=== PATIENT | male | born 1955 | race African-American/Black ===

== ENCOUNTER 2017-01-25 23:21 | Observation (INO) | payer MEDICAID ==
[~2017-01-25] VITALS: Ht 167.6 cm; Wt 77.7 kg
[~2017-01-25 23:21] MED LIST: ALLO100T30 PO; AMLO10TA4 PO; ENAL20TA PO; ENAL20TA68 PO; ESCI20TA PO; FLUO20CA19 PO; MIRT15TA PO; OLAN15TA9 PO; OLAN20TA3 PO; RISP2TAB35 PO; TRIA1TAB3 PO; ZOLP10TA PO
[2017-01-26] MEDS ORDERED: ZIPRASIDONE 20 MG INJ IM ONE (00:02)
[2017-01-26] MEDS ORDERED: HALOPERIDOL 5 MG/ML ONE (00:04)
[2017-01-26] MEDS ORDERED: DIPHENHYDRAMINE 50 MG/ML, 1ML ONE (00:04)
[2017-01-26] MEDS ORDERED: LORazepam 2 MG/ML, 1ML ONE (00:05)
[2017-01-26] MEDS ORDERED: DIPHENHYDRAMINE 50 MG/ML, 1ML IM ONE (00:30)
[2017-01-26] MEDS ORDERED: HALOPERIDOL 5 MG/ML IM ONE (00:30)
[2017-01-26] MEDS ORDERED: LORazepam 2 MG/ML, 1ML IM ONE (00:30)
[2017-01-26 01:30] LABS: ASPARTATE AMINO TRANSFERASE 28 U/L (15-37); BLOOD UREA NITROGEN 15 mg/dL (7-18)
[2017-01-26 01:35] LABS: ACETAMINOPHEN < 2 mcg/mL (10-30)
[2017-01-26 08:33] LABS: DAU SCREEN DISCLAIMER
[2017-01-26] MEDS ORDERED: DOCUSATE 100 MG CAPSULE PO PRN (16:30)
[2017-01-26] MEDS ORDERED: HALOPERIDOL 5 MG TABLET PO PRN (16:30)
[2017-01-26] MEDS ORDERED: LORazepam 1MG TABLET PO PRN (16:30)
[2017-01-26] MEDS ORDERED: BISACODYL 10 MG SUPP PR PRN (16:30)
[2017-01-26] MEDS ORDERED: ONDANSETRON ODT 4 MG PO PRN (16:30)
[2017-01-26] MEDS ORDERED: POLYETHYLENE GLYCOL 17 GM PACKET PO PRN (16:30)
[2017-01-26 17:49] VITALS: BP 157/97
[2017-01-26] MEDS: NICOTINE 21 MG/24 HR PATCH.TD24 TD SCH (19:27)
[2017-01-26 19:35] VITALS: BP 161/107
[2017-01-27 07:37] VITALS: BP_SYST 191; BP_SYST 199; BP_DIAS 122; BP_DIAS 129
[2017-01-27] MEDS: ALLOPURINOL 100 MG TABLET PO SCH (08:39)
[2017-01-27] MEDS: TRIAMTERENE-HCTZ 37.5/25 MG TABLET PO SCH (08:40)
[2017-01-27] MEDS: ENALAPRIL 20MG TABLET PO SCH (08:40)
[2017-01-27] MEDS: AMLODIPINE 5 MG TABLET PO SCH (08:40)
[2017-01-27] MEDS: ACETAMINOPHEN 325 MG TABLET PO PRN (09:21)
[2017-01-27 11:47] VITALS: BP 147/84
[2017-01-27] MEDS: NICOTINE 21 MG/24 HR PATCH.TD24 TD SCH (17:00)
[2017-01-27 19:39] VITALS: BP 158/103
[2017-01-28 07:44] VITALS: BP 169/119
[2017-01-28 07:45] VITALS: BP 168/115
[2017-01-28] MEDS: TRIAMTERENE-HCTZ 37.5/25 MG TABLET PO SCH (07:49)
[2017-01-28] MEDS: ALLOPURINOL 100 MG TABLET PO SCH (07:49)
[2017-01-28] MEDS: ENALAPRIL 20MG TABLET PO SCH (07:50)
[2017-01-28] MEDS: AMLODIPINE 5 MG TABLET PO SCH (07:50)
[2017-01-28 11:30] VITALS: BP 165/107
[2017-01-28] MEDS: NICOTINE 21 MG/24 HR PATCH.TD24 TD SCH (15:46)
[2017-01-28 19:25] VITALS: BP 175/117
[2017-01-28] MEDS: ACETAMINOPHEN 325 MG TABLET PO PRN (19:25)
[2017-01-28 20:27] VITALS: BP 157/115
[2017-01-28 21:45] VITALS: BP 139/98
[2017-01-29] MEDS: ALLOPURINOL 100 MG TABLET PO SCH (07:21)
[2017-01-29] MEDS: TRIAMTERENE-HCTZ 37.5/25 MG TABLET PO SCH (07:21)
[2017-01-29] MEDS: AMLODIPINE 5 MG TABLET PO SCH ×3 (07:21→09:32)
[2017-01-29 08:11] VITALS: BP 155/96
[2017-01-29] MEDS: ENALAPRIL 20MG TABLET PO SCH (09:00)
[2017-01-29] MEDS: NICOTINE 21 MG/24 HR PATCH.TD24 TD SCH (15:29)
[2017-01-29] MEDS ORDERED: TRIA1TAB3 PO (16:33)
[2017-01-29] MEDS ORDERED: AMLO5TAB2 PO (16:33)
[2017-01-29] MEDS ORDERED: ENAL20TA PO (16:33)
[2017-01-29] MEDS ORDERED: DOCU-30 PO (16:33)
[2017-01-29] MEDS ORDERED: ALLO100T30 PO (16:33)
== END 2017-01-29 16:39 | disposition home or self-care (01) ==
LOC: ED 23:59 → EDIP 01-26 15:22 → 3E 01-26 17:37
PROVIDERS: ADMIT Family Medicine; ATTEND Family Medicine
DX: R45.850 Homicidal ideations (principal); E44.0 Moderate protein-calorie malnutrition; I11.9 Hypertensive heart disease without heart failure; F41.9 Anxiety disorder, unspecified; R45.851 Suicidal ideations; M10.9 Gout, unspecified; G89.29 Other chronic pain; F17.200 Nicotine dependence, unspecified, uncomplicated; F12.90 Cannabis use, unspecified, uncomplicated; M54.9 Dorsalgia, unspecified; Z98.890 Other specified postprocedural states; Z80.9 Family history of malignant neoplasm, unspecified
CPT/HCPCS: 36415; 80053; 80307; 80329; 85025; 96372; 99285; G0378; J1200; J1630; J2060; G0480

== ENCOUNTER 2017-02-24 23:14 | Emergency (ER) | payer MEDICAID ==
[~2017-02-24] VITALS: Ht 170.2 cm; Wt 75.0 kg
[~2017-02-24 23:14] MED LIST changes: +AMLO5TAB2 PO; +DOCU-30 PO
[2017-02-24 23:23] VITALS: BP 169/106
[2017-02-25 00:28] LABS: ASPARTATE AMINO TRANSFERASE 24 U/L (15-37); BLOOD UREA NITROGEN 25 mg/dL (7-18)
[2017-02-25 00:32] LABS: ACETAMINOPHEN < 2 mcg/mL (10-30)
[2017-02-25 01:18] LABS: DAU SCREEN DISCLAIMER
== END 2017-02-25 04:02 | disposition home or self-care (01) ==
LOC: ED 23:59
DX: F15.129 Other stimulant abuse with intoxication, unspecified (principal); R44.3 Hallucinations, unspecified; F20.9 Schizophrenia, unspecified; R44.0 Auditory hallucinations; F20.0 Paranoid schizophrenia; F41.1 Generalized anxiety disorder; F29 Unspecified psychosis not due to a substance or known physiological condition; M10.9 Gout, unspecified; F32.9 Major depressive disorder, single episode, unspecified; I10 Essential (primary) hypertension
CPT/HCPCS: 36415; 80053; 80307; 80329; 81003; 85025; 99284; G0480

== ENCOUNTER 2017-02-26 13:00 | Emergency (ER) | payer MEDICAID ==
[~2017-02-26] VITALS: Ht 170.2 cm; Wt 80.0 kg
[2017-02-26 13:47] LABS: ASPARTATE AMINO TRANSFERASE 26 U/L (15-37); BLOOD UREA NITROGEN 20 mg/dL (7-18)
[2017-02-26 14:58] VITALS: BP 176/90
== END 2017-02-26 15:01 | disposition home or self-care (01) ==
LOC: ED 14:49
DX: R42 Dizziness and giddiness (principal); M10.9 Gout, unspecified; I10 Essential (primary) hypertension; F17.210 Nicotine dependence, cigarettes, uncomplicated; F15.10 Other stimulant abuse, uncomplicated; F12.10 Cannabis abuse, uncomplicated
CPT/HCPCS: 36415; 80053; 85025; 93005

== ENCOUNTER 2017-10-11 01:45 | Emergency (ER) | payer MEDICAID ==
[~2017-10-11] VITALS: Ht 170.2 cm; Wt 70.0 kg
[~2017-10-11 01:45] MED LIST changes: +DOCU-131 PO; -DOCU-30 PO
[2017-10-11 01:47] VITALS: BP 147/86
[2017-10-11 02:46] LABS: BASOPHILS # (AUTO) 0.06 x10^3/uL (0-0.1); BASOPHILS % (AUTO) 1 % (0-1); EOSINOPHILS # (AUTO) 0.18 x10^3/uL (0-0.4); EOSINOPHILS % (AUTO) 2 % (1-7); LYMPHOCYTES # (AUTO) 1.27 x10^3/uL (1-3.4); LYMPHOCYTES % (AUTO) 11 % (22-44); MD NO; MEAN CORPUSCULAR HEMOGLOBIN 31.1 pg (27.5-34.5); MEAN CORPUSCULAR HGB CONC 32.5 g/dL (33.2-36.2); MEAN CORPUSCULAR VOLUME 95.5 fL (81-97); MEAN PLATELET VOLUME 8.8 fL (7.4-10.4); MONOCYTES # (AUTO) 1.07 x10^3/uL (0.2-0.8); MONOCYTES % (AUTO) 9 % (2-9); NEUTROPHILS # (AUTO) 9.04 x10^3/uL (1.8-6.8); NEUTROPHILS % (AUTO) 78 % (42-75); PLATELET COUNT 580 x10^3/uL (130-400); RED BLOOD COUNT 3.09 x10^6/uL (4.38-5.82); RED CELL DISTRIBUTION WIDTH 14.7 % (9.4-14.8)
[2017-10-11 02:55] LABS: ALBUMIN 2.4 g/dL (3.4-5.0); ANION GAP 10 mmol/L (5-15); CALCIUM 8.6 mg/dL (8.5-10.1); CHLORIDE 102 mmol/L (98-107); CREATININE 1.13 mg/dL (0.7-1.3)
[2017-10-11 02:59] LABS: TROPONIN I 0.015 ng/mL (0.000-0.045)
== END 2017-10-11 04:24 | disposition home or self-care (01) ==
LOC: ED 03:17
DX: J02.8 Acute pharyngitis due to other specified organisms (principal); D64.89 Other specified anemias; I10 Essential (primary) hypertension; F20.0 Paranoid schizophrenia; Z59.0 Homelessness
CPT/HCPCS: 36415; 71045; 80048; 82040; 84484; 85025; 93005; 99285

== ENCOUNTER 2017-10-12 22:39 | Emergency (ER) | payer MEDICAID ==
[~2017-10-12] VITALS: Ht 172.7 cm; Wt 77.2 kg
[2017-10-12 22:44] VITALS: BP 155/83
[2017-10-12 23:21] LABS: ALANINE AMINOTRANSFERASE 58 U/L (12-78); ALBUMIN 2.3 g/dL (3.4-5.0); ANION GAP 9 mmol/L (5-15); CHLORIDE 109 mmol/L (98-107); CREATININE 1.18 mg/dL (0.7-1.3)
[2017-10-12 23:28] LABS: ALKALINE PHOSPHATASE 76 U/L (45-117); BILIRUBIN,TOTAL 0.3 mg/dL (0.2-1.0); TOTAL PROTEIN 7.1 g/dL (6.4-8.2)
[2017-10-12 23:29] LABS: ACETAMINOPHEN < 2 mcg/mL (10-30); SALICYLATE LEVEL < 1.7 mg/dL (2.8-20.0)
[2017-10-12 23:37] LABS: MEAN CORPUSCULAR HEMOGLOBIN 31.2 pg (27.5-34.5); MEAN CORPUSCULAR HGB CONC 32.2 g/dL (33.2-36.2); MEAN CORPUSCULAR VOLUME 96.9 fL (81-97); MEAN PLATELET VOLUME 8.9 fL (7.4-10.4); PLATELET COUNT 528 x10^3/uL (130-400); RED BLOOD COUNT 2.81 x10^6/uL (4.38-5.82); RED CELL DISTRIBUTION WIDTH 14.9 % (9.4-14.8)
[2017-10-12 23:49] LABS: AMPHETAMINE SCREEN, URINE Negative (Negative); BARBITURATE SCREEN, URINE Positive (Negative); BENZODIAZEPINE SCREEN, URINE Positive (Negative); CANNABINOID SCREEN, URINE Negative (Negative); COCAINE SCREEN, URINE Negative (Negative); METHADONE SCREEN, URINE Negative (Negative); OPIATE SCREEN, URINE Negative (Negative)
[2017-10-12 23:58] LABS: BASOPHILS # (AUTO) 0.02 x10^3/uL (0-0.1); BASOPHILS % (AUTO) 0 % (0-1); EOSINOPHILS # (AUTO) 0.26 x10^3/uL (0-0.4); EOSINOPHILS % (AUTO) 3 % (1-7); LYMPHOCYTES # (AUTO) 1.78 x10^3/uL (1-3.4); LYMPHOCYTES % (AUTO) 19 % (22-44); MD SCAN; MONOCYTES # (AUTO) 0.79 x10^3/uL (0.2-0.8); MONOCYTES % (AUTO) 9 % (2-9); NEUTROPHILS # (AUTO) 6.43 x10^3/uL (1.8-6.8); NEUTROPHILS % (AUTO) 69 % (42-75)
== END 2017-10-13 01:57 | disposition home or self-care (01) ==
LOC: ED 23:51
DX: F32.0 Major depressive disorder, single episode, mild (principal); I10 Essential (primary) hypertension; F20.9 Schizophrenia, unspecified; F17.200 Nicotine dependence, unspecified, uncomplicated; Z59.0 Homelessness; Z79.899 Other long term (current) drug therapy
CPT/HCPCS: 36415; 80053; 80307; 80329; 85025; 99284; G0479; G0480

== ENCOUNTER 2017-10-15 22:18 | Emergency (ER) | payer MEDICAID ==
[~2017-10-15] VITALS: Ht 172.7 cm; Wt 78.0 kg
[2017-10-15 22:19] VITALS: BP 172/89
[2017-10-16] MEDS ORDERED: KETOROLAC 30 MG/1 ML ONE (00:15)
[2017-10-16] MEDS ORDERED: ACETAMINOPHEN 500 MG TABLET ONE (00:15)
[2017-10-16] MEDS ORDERED: ACETAMINOPHEN 500 MG TABLET PO ONE (00:30)
[2017-10-16] MEDS ORDERED: KETOROLAC 30 MG/1 ML IM ONE (00:30)
== END 2017-10-16 00:56 | disposition home or self-care (01) ==
LOC: ED 23:59
DX: M25.561 Pain in right knee (principal); M25.571 Pain in right ankle and joints of right foot; M79.671 Pain in right foot; I10 Essential (primary) hypertension
CPT/HCPCS: 96372; 99283; J1885

== ENCOUNTER 2017-10-19 12:25 | Emergency (ER) | payer MEDICAID ==
[~2017-10-19] VITALS: Ht 185.4 cm; Wt 80.0 kg
[2017-10-19] MEDS ORDERED: COLCHICINE 0.6 MG TABLET PO ONE ×2 (13:00→14:00)
[2017-10-19] MEDS ORDERED: CHLORDIAZEPOXIDE 10 MG CAPSULE PO PRN (13:00)
[2017-10-19] MEDS ORDERED: KETOROLAC 30 MG/1 ML IM ONE (13:00)
[2017-10-19 13:06] LABS: BASOPHILS # (AUTO) 0.05 x10^3/uL (0-0.1); BASOPHILS % (AUTO) 0 % (0-1); EOSINOPHILS # (AUTO) 0.03 x10^3/uL (0-0.4); EOSINOPHILS % (AUTO) 0 % (1-7); LYMPHOCYTES # (AUTO) 1.18 x10^3/uL (1-3.4); LYMPHOCYTES % (AUTO) 8 % (22-44); MD NO; MEAN CORPUSCULAR HEMOGLOBIN 31.3 pg (27.5-34.5); MEAN CORPUSCULAR HGB CONC 32.7 g/dL (33.2-36.2); MEAN CORPUSCULAR VOLUME 95.6 fL (81-97); MONOCYTES # (AUTO) 1.19 x10^3/uL (0.2-0.8); MONOCYTES % (AUTO) 8 % (2-9); NEUTROPHILS # (AUTO) 11.86 x10^3/uL (1.8-6.8); NEUTROPHILS % (AUTO) 83 % (42-75); PLATELET COUNT 467 x10^3/uL (130-400); RED BLOOD COUNT 3.03 x10^6/uL (4.38-5.82); RED CELL DISTRIBUTION WIDTH 14.6 % (9.4-14.8)
[2017-10-19 13:14] LABS: ALBUMIN 2.4 g/dL (3.4-5.0); ANION GAP 6 mmol/L (5-15); CALCIUM 8.6 mg/dL (8.5-10.1); CHLORIDE 104 mmol/L (98-107); CREATININE 0.82 mg/dL (0.7-1.3)
[2017-10-19] MEDS ORDERED: KETOROLAC 30 MG/1 ML ONE (13:16)
[2017-10-19 14:15] VITALS: BP 153/103
== END 2017-10-19 15:32 | disposition home or self-care (01) ==
LOC: ED 13:13
DX: F10.129 Alcohol abuse with intoxication, unspecified (principal); M13.161 Monoarthritis, not elsewhere classified, right knee; I10 Essential (primary) hypertension; F20.9 Schizophrenia, unspecified
CPT/HCPCS: 36415; 80048; 82040; 84550; 85025; 96372; 99284; J1885

== ENCOUNTER 2017-10-25 08:32 | Emergency (ER) | payer MEDICAID ==
[~2017-10-25] VITALS: Ht 172.7 cm; Wt 56.3 kg
[2017-10-25] MEDS ORDERED: ASPIRIN 81 MG TABLET CHEW PO ONE (09:30)
[2017-10-25 09:35] LABS: MEAN CORPUSCULAR HEMOGLOBIN 30.8 pg (27.5-34.5); MEAN CORPUSCULAR HGB CONC 32.6 g/dL (33.2-36.2); MEAN CORPUSCULAR VOLUME 94.6 fL (81-97); MEAN PLATELET VOLUME 8.1 fL (7.4-10.4); PLATELET COUNT 565 x10^3/uL (130-400); RED BLOOD COUNT 3.64 x10^6/uL (4.38-5.82); RED CELL DISTRIBUTION WIDTH 14.1 % (9.4-14.8)
[2017-10-25 09:42] LABS: ALANINE AMINOTRANSFERASE 37 U/L (12-78); ANION GAP 7 mmol/L (5-15); CALCIUM 9.2 mg/dL (8.5-10.1); CHLORIDE 97 mmol/L (98-107); CREATININE 1.47 mg/dL (0.7-1.3)
[2017-10-25 09:44] LABS: ALKALINE PHOSPHATASE 82 U/L (45-117); BILIRUBIN,TOTAL 0.3 mg/dL (0.2-1.0); TOTAL PROTEIN 9.3 g/dL (6.4-8.2)
[2017-10-25 09:50] LABS: BASOPHILS # (AUTO) 0.01 x10^3/uL (0-0.1); BASOPHILS % (AUTO) 0 % (0-1); EOSINOPHILS # (AUTO) 0.03 x10^3/uL (0-0.4); EOSINOPHILS % (AUTO) 0 % (1-7); LYMPHOCYTES % (AUTO) 10 % (22-44); MD SCAN; MONOCYTES # (AUTO) 0.57 x10^3/uL (0.2-0.8); MONOCYTES % (AUTO) 6 % (2-9); NEUTROPHILS # (AUTO) 8.59 x10^3/uL (1.8-6.8); NEUTROPHILS % (AUTO) 84 % (42-75)
[2017-10-25] MEDS ORDERED: SODIUM CHLORIDE FLUSH 10ML SYR IVF ONE (10:30)
[2017-10-25] MEDS ORDERED: OMNIPAQUE 350 MG/ML, 100ML BOTTLE ONE (11:10)
[2017-10-25 12:23] VITALS: BP 129/89
== END 2017-10-25 12:25 | disposition home or self-care (01) ==
LOC: ED 10:40
DX: R07.89 Other chest pain (principal); N28.9 Disorder of kidney and ureter, unspecified; M10.9 Gout, unspecified; M19.90 Unspecified osteoarthritis, unspecified site; F32.9 Major depressive disorder, single episode, unspecified; F20.0 Paranoid schizophrenia; I10 Essential (primary) hypertension
CPT/HCPCS: 36415; 71045; 71275; 80053; 83690; 84484; 85025; 85379; 93005; 99285; Q9967

== ENCOUNTER 2018-09-07 03:32 | Emergency (ER) | payer MEDICAID ==
[~2018-09-07 03:32] MED LIST changes: +AMLO-150 PO; -AMLO5TAB2 PO
== END 2018-09-07 04:36 | disposition home or self-care (01) ==
LOC: ED 04:30
DX: R68.89 Other general symptoms and signs (principal); Z53.21 Procedure and treatment not carried out due to patient leaving prior to being seen by health care provider

== ENCOUNTER 2019-11-09 23:17 | Inpatient (IN) | payer MEDICAID, OTHER ==
[~2019-11-09] VITALS: Ht 167.6 cm; Wt 70.3 kg
[2019-11-09] MEDS ORDERED: DEXTROSE 50%, 50ML SYRINGE ONE (23:24)
[2019-11-09] MEDS ORDERED: PLEASE ENTER ALLERGIES MC SCH (23:45)
[2019-11-09] MEDS: PROPOFOL 100 ML IV PRN (23:45)
[2019-11-09] MEDS ORDERED: PLEASE ENTER HEIGHT AND WEIGHT MC SCH (23:45)
[2019-11-09 23:50] LABS: MEAN CORPUSCULAR HGB CONC 31.2 g/dL (33.2-36.2); MEAN CORPUSCULAR VOLUME 97.5 fL (81-97); PLATELET COUNT 263 x10^3/uL (130-400); RED CELL DISTRIBUTION WIDTH 14.9 % (9.4-14.8)
--- NOTE | 2019-11-09 23:50 | NUR ---
PT BIB [facility] WITH C/O RESP DISTRESS. PT PULLING AT NRB MASK AND REFUSING TO SIT STILL FOR ASSESSMENT OR IV. AFTER FAILED ATTEMPTS AT IV, IO ACCESS OBTAINED TO LLE. PT SEDATED AND INTUBATED. PROPOFOL DRIP INFUSING. KRUEGER PLACED AND ERP NOTIFIED OF TEMP 102. PT SINUS TACHY ON MONITOR. HTN NOTED.
[2019-11-10] MEDS ORDERED: SUCCINYLCHOLINE 20 MG/ML, 10ML IVPush ONE
[2019-11-10] MEDS ORDERED: PROPOFOL 10 MG/ML, 100ML IV ONE ×2
[2019-11-10] MEDS ORDERED: ETOMIDATE 20 MG/10 ML IVPush ONE
[2019-11-10] MEDS ORDERED: ETOMIDATE 40 MG/20 ML ONE ×2
[2019-11-10] MEDS ORDERED: MIDAZOLAM 1 MG/ML, 5ML ONE
[2019-11-10] MEDS ORDERED: SUCCINYLCHOLINE 20 MG/ML, 10ML ONE ×2
[2019-11-10 00:04] LABS: ALANINE AMINOTRANSFERASE 34 U/L (12-78); ALBUMIN 3.5 g/dL (3.4-5.0); ANION GAP 8 mmol/L (5-15); CALCIUM 8.7 mg/dL (8.5-10.1); CHLORIDE 104 mmol/L (98-107)
[2019-11-10 00:05] LABS: SALICYLATE LEVEL < 1.7 mg/dL (2.8-20.0)
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
[2019-11-10 00:09] LABS: ALKALINE PHOSPHATASE 67 U/L (45-117); BILIRUBIN,TOTAL 1.1 mg/dL (0.2-1.0); TOTAL PROTEIN 8.1 g/dL (6.4-8.2)
[2019-11-10 00:11] LABS: TROPONIN I 0.341 ng/mL (0.000-0.045)
[2019-11-10 00:17] LABS: BASOPHILS # (AUTO) 0.05 x10^3/uL (0-0.1); BASOPHILS % (AUTO) 0 % (0-1); EOSINOPHILS % (AUTO) 0 % (1-7); LYMPHOCYTES # (AUTO) 1.68 x10^3/uL (1-3.4); LYMPHOCYTES % (AUTO) 13 % (22-44); MD SCAN; MONOCYTES # (AUTO) 0.63 x10^3/uL (0.2-0.8); MONOCYTES % (AUTO) 5 % (2-9); NEUTROPHILS # (AUTO) 10.85 x10^3/uL (1.8-6.8); NEUTROPHILS % (AUTO) 82 % (42-75)
[2019-11-10] MEDS ORDERED: ACETAMINOPHEN 650 MG SUPP ONE (00:17)
--- NOTE | 2019-11-10 00:25 | NUR ---
ERP AWARE OF FSBS 50. CMP RESULTED AND GLUCOSE 95. NO FURTHER ORDERS RECEIVED AT THIS TIME.
[2019-11-10] MEDS ORDERED: FENTANYL PF 100 MCG/2ML ONE ×2 (00:29→01:18)
[2019-11-10] MEDS ORDERED: SODIUM CHLORIDE 0.9% 1,000ML IVBOLUS ONE (00:30)
[2019-11-10] MEDS ORDERED: VANCOMYCIN PER PHARMACY MC ONE (00:30)
[2019-11-10] MEDS ORDERED: PIPERACILLIN/TAZO/PMX 3.375GM 50 ML IVPB ONE (00:30)
[2019-11-10] MEDS ORDERED: FENTANYL PF 100 MCG/2ML IVPush ONE (00:30)
[2019-11-10] MEDS ORDERED: ACETAMINOPHEN 650 MG SUPP PR ONE (00:30)
--- NOTE | 2019-11-10 00:40 | NUR ---
PT MEDICATED FOR FEVER. ICE PACKS TO BILAT AXILLARY AND INGUINAL AREAS. ERP AT BEDSIDE FOR CENTRAL LINE PLACEMENT.
[2019-11-10] MEDS ORDERED: VANCOMYCIN PMX 1GM/200ML 200 ML IV ONE (01:00)
[2019-11-10 01:10] LABS: MICROSCOPIC INDICATED
[2019-11-10] MEDS ORDERED: PIPERACILLIN/TAZO/PMX 3.375GM 50 ML ONE (01:11)
--- NOTE | 2019-11-10 01:15 | NUR ---
CENTRAL LINE PLACED AND XRAY COMPLETED. OK TO USE LINE PER ERP. FLUIDS INFUSING---ONLY 1L NS TO BE GIVEN PER ERP S/T PT'S BNP AND LIKELY FLUID OVERLOAD. VANCO INFUSING S/T BLOOD CULTURES X2 DRAWN.
[2019-11-10 01:32] LABS: AMPHETAMINE SCREEN, URINE Positive (Negative); BARBITURATE SCREEN, URINE Negative (Negative); BENZODIAZEPINE SCREEN, URINE Negative (Negative); CANNABINOID SCREEN, URINE Positive (Negative); COCAINE SCREEN, URINE Negative (Negative); METHADONE SCREEN, URINE Negative (Negative); OPIATE SCREEN, URINE Negative (Negative)
[2019-11-10 01:43] LABS: CULTURE INDICATED? NO
[2019-11-10 01:51] LABS: RAPID INFLUENZA A Negative (Negative); RAPID INFLUENZA B Negative (Negative)
[2019-11-10] MEDS ORDERED: MIDAZOLAM 1 MG/ML, 5ML IVPush ONE (02:00)
[2019-11-10] MEDS ORDERED: SODIUM CHLORIDE 0.9% 1,000 ML IV SCH (02:12)
--- NOTE | 2019-11-10 02:26 | NUR ---
ADMITTING MD IN TO EVAL. DISCUSSED PT'S DECREASED URINE OUTPUT. 20 ML SINCE KRUEGER PLACED 2 HOURS AGO. PER MD, PT TO RECEIVED FULL 2L BOLUS THAT WAS INITIALLY ORDERED BY ERP. FIRST LITER FINISHING AT THIS TIME. DISCUSSED LABS AND XRAY WITH MD--AWARE AND OK TO GIVE FLUIDS. AWAITING FURTHER ORDERS AND TRANSFER TO CCU.
[2019-11-10] MEDS ORDERED: morphine SULFATE 10 MG/ML, 1ML IVPush PRN (02:30)
[2019-11-10] MEDS ORDERED: BISACODYL 10 MG SUPP PR PRN ×2 (02:30→04:00)
[2019-11-10] MEDS ORDERED: DOCUSATE 100 MG CAPSULE PO PRN (02:30)
[2019-11-10] MEDS ORDERED: POLYETHYLENE GLYCOL 17 GM PACKET PO PRN (02:30)
[2019-11-10] MEDS ORDERED: hydrALAzine 20 MG/ML, 1ML IVPush PRN (02:30)
[2019-11-10] MEDS ORDERED: ONDANSETRON 2MG/ML, 2ML IVPush PRN (02:30)
[2019-11-10] MEDS ORDERED: ONDANSETRON ODT 4 MG PO PRN (02:30)
[2019-11-10] MEDS ORDERED: PROMETHAZINE 25 MG/ML, 1ML IM PRN (02:30)
[2019-11-10] MEDS ORDERED: VANCOMYCIN PER PHARMACY MC PRN (03:00)
[2019-11-10] MEDS ORDERED: PHARMACOKINETIC MONITORING MC PRN (03:00)
[2019-11-10 03:10] LABS: FREE T4 (FREE THYROXINE) 1.15 ng/dL (0.76-1.46)
[2019-11-10] MEDS: PROPOFOL 100 ML IV PRN (03:21)
[2019-11-10] MEDS: HEPARIN 5,000 UNITS/ML, 1ML SQ SCH ×3 (03:25→18:34)
[2019-11-10 03:30] VITALS: BP 131/98
[2019-11-10] MEDS ORDERED: PROPOFOL 100 ML IV PRN (03:41)
[2019-11-10] MEDS ORDERED: NOREPINEPHRINE 8 MG in SODIUM CHLORIDE 0.9% 242 ML IV PRN (03:41)
[2019-11-10 03:50] VITALS: BP 126/92
[2019-11-10] MEDS ORDERED: LACTULOSE 20 GM/30 ML UDC NG PRN (04:00)
[2019-11-10] MEDS ORDERED: DEXTROSE 50%, 50ML SYRINGE IVPush PRN (04:00)
[2019-11-10] MEDS ORDERED: GLUCAGON 1 MG IM PRN (04:00)
[2019-11-10] MEDS ORDERED: LIDOCAINE-MPF 1%, 2ML ENDO PRN (04:00)
[2019-11-10] MEDS ORDERED: SENNA/DOCUSATE TABLET NG PRN (04:00)
[2019-11-10] MEDS ORDERED: DEXTROSE 4 GM TAB.CHEW PO PRN (04:00)
[2019-11-10] MEDS ORDERED: PHARMACY MAY ADJ FOR RENAL FX MC SCH (04:00)
[2019-11-10] MEDS ORDERED: SENNA 176 MG/5 ML ORAL SOL NG PRN (04:00)
[2019-11-10] MEDS ORDERED: FENTANYL PF 100 MCG/2ML IVPush PRN (04:00)
[2019-11-10 04:09] LABS: TROPONIN I 0.686 ng/mL (0.000-0.045)
[2019-11-10 04:09] LABS: BASOPHILS # (AUTO) 0.01 x10^3/uL (0-0.1); BASOPHILS % (AUTO) 0 % (0-1); EOSINOPHILS % (AUTO) 0 % (1-7); LYMPHOCYTES # (AUTO) 0.33 x10^3/uL (1-3.4); LYMPHOCYTES % (AUTO) 4 % (22-44); MD NO; MEAN CORPUSCULAR HGB CONC 32.4 g/dL (33.2-36.2); MEAN CORPUSCULAR VOLUME 96.3 fL (81-97); MONOCYTES # (AUTO) 0.56 x10^3/uL (0.2-0.8); MONOCYTES % (AUTO) 6 % (2-9); NEUTROPHILS # (AUTO) 8.62 x10^3/uL (1.8-6.8); NEUTROPHILS % (AUTO) 91 % (42-75); PLATELET COUNT 185 x10^3/uL (130-400); RED CELL DISTRIBUTION WIDTH 14.6 % (9.4-14.8)
[2019-11-10] MEDS: PIPERACILLIN/TAZO/PMX 2.25GM 50 ML IV SCH ×3 (06:11→18:45)
[2019-11-10] MEDS: ALBUTEROL/IPRATROPIUM 2.5MG/0.5MG, 3 ML INLINE SCH ×2 (06:30→10:10)
[2019-11-10 11:24] LABS: TROPONIN I 0.478 ng/mL (0.000-0.045)
[2019-11-10] MEDS: FAMOTIDINE 20 MG/2 ML IVPush SCH ×2 (11:54→20:33)
[2019-11-10] MEDS: SODIUM CHLORIDE FLUSH 10ML SYR IVF SCH ×2 (12:00→20:35)
[2019-11-10] MEDS ORDERED: ACETAMINOPHEN 325 MG TABLET ONE (16:14)
[2019-11-10] MEDS: ACETAMINOPHEN 325 MG TABLET PO PRN ×2 (16:15→20:36)
[2019-11-10] MEDS ORDERED: VANCOMYCIN 1,300 MG in SODIUM CHLORIDE 0.9% 250 ML IV SCH (20:00)
[2019-11-10] MEDS: OXYcodone IR 5MG TABLET PO PRN (20:46)
[2019-11-11] MEDS: PIPERACILLIN/TAZO/PMX 2.25GM 50 ML IV SCH ×4 (00:59→20:04)
[2019-11-11] MEDS ORDERED: SODIUM CHLORIDE 0.9% 1,000 ML IV SCH (02:12)
[2019-11-11] MEDS: HEPARIN 5,000 UNITS/ML, 1ML SQ SCH ×3 (02:35→18:34)
[2019-11-11 04:00] VITALS: BP 118/86
[2019-11-11 04:36] LABS: MEAN CORPUSCULAR HEMOGLOBIN 30.6 pg (27.5-34.5); MEAN CORPUSCULAR HGB CONC 32.2 g/dL (33.2-36.2); MEAN PLATELET VOLUME 9.7 fL (7.4-10.4); PLATELET COUNT 165 x10^3/uL (130-400); RED BLOOD COUNT 4.13 x10^6/uL (4.38-5.82); RED CELL DISTRIBUTION WIDTH 14.8 % (9.4-14.8)
[2019-11-11 04:41] LABS: ALANINE AMINOTRANSFERASE 56 U/L (12-78); ALBUMIN 2.4 g/dL (3.4-5.0); ANION GAP 7 mmol/L (5-15); CALCIUM 8.2 mg/dL (8.5-10.1); CHLORIDE 107 mmol/L (98-107); CREATININE 1.74 mg/dL (0.7-1.3)
[2019-11-11 04:45] LABS: ALKALINE PHOSPHATASE 40 U/L (45-117); BILIRUBIN,TOTAL 1.1 mg/dL (0.2-1.0); CHOL/HDL RATIO 2.1; CHOLESTEROL, TOTAL 148 mg/dL (140-239); HDL CHOL % 47 % (26-37); HDL CHOLESTEROL (DIRECT) 69 mg/dL (40-60); LDL CHOLESTEROL,CALCULATED 63 mg/dL (54-169); LDL/HDL RATIO 0.9 (0.5-3.0); TOTAL PROTEIN 6.1 g/dL (6.4-8.2); TRIGLYCERIDES 81 mg/dL (50-200); VLDL CHOLESTEROL 16 mg/dL (0-25)
[2019-11-11 04:54] LABS: MD YES
[2019-11-11 04:58] LABS: LYMPH#(MANUAL) 0.82 x10^3/uL (1-3.4); LYMPHS% (MANUAL) 16 % (22-44); MONOS#(MANUAL) 0.41 x10^3/uL (0.3-2.7); MONOS% (MANUAL) 8 % (2-9); SEG#(MANUAL) 3.88 x10^3/uL (1.8-6.8); SEGS% (MANUAL) 76 % (42-75)
[2019-11-11 04:59] LABS: <PLATELET ESTIMATE> ADEQUATE; <PLT MORPHOLOGY> NORMAL PLT MORPH; ANISOCYTOSIS 1+
[2019-11-11] MEDS: CARVEDILOL 3.125 MG TABLET PO SCH ×2 (09:21→18:35)
[2019-11-11] MEDS: FAMOTIDINE 20 MG/2 ML IVPush SCH (09:21)
[2019-11-11] MEDS: SODIUM CHLORIDE FLUSH 10ML SYR IVF SCH ×2 (09:22→21:00)
[2019-11-11 14:29] VITALS: BP 146/90
[2019-11-11 15:32] LABS: CREATININE 1.78 mg/dL (0.7-1.3)
[2019-11-11 15:35] LABS: MEAN CORPUSCULAR HEMOGLOBIN 30.4 pg (27.5-34.5); RED BLOOD COUNT 4.95 x10^6/uL (4.38-5.82)
[2019-11-11 15:40] LABS: MEAN CORPUSCULAR HEMOGLOBIN 31.2 pg (27.5-34.5); RED BLOOD COUNT 4.17 x10^6/uL (4.38-5.82)
[2019-11-11] MEDS ORDERED: VANCOMYCIN 1,200 MG in SODIUM CHLORIDE 0.9% 250 ML IV SCH (21:00)
[2019-11-12 02:10] VITALS: BP 157/96
[2019-11-12] MEDS: PIPERACILLIN/TAZO/PMX 2.25GM 50 ML IV SCH (02:13)
[2019-11-12] MEDS: HEPARIN 5,000 UNITS/ML, 1ML SQ SCH ×3 (02:19→18:11)
[2019-11-12] MEDS: CARVEDILOL 3.125 MG TABLET PO SCH (05:49)
[2019-11-12 06:13] LABS: CHLORIDE 107 mmol/L (98-107)
[2019-11-12 06:17] LABS: ANION GAP 9 mmol/L (5-15); CALCIUM 8.2 mg/dL (8.5-10.1); CREATININE 1.65 mg/dL (0.7-1.3)
[2019-11-12 06:18] LABS: BASOPHILS # (AUTO) 0.04 x10^3/uL (0-0.1); BASOPHILS % (AUTO) 1 % (0-1); EOSINOPHILS # (AUTO) 0.04 x10^3/uL (0-0.4); EOSINOPHILS % (AUTO) 1 % (1-7); LYMPHOCYTES # (AUTO) 1.11 x10^3/uL (1-3.4); LYMPHOCYTES % (AUTO) 28 % (22-44); MD NO; MEAN CORPUSCULAR HEMOGLOBIN 30.9 pg (27.5-34.5); MEAN CORPUSCULAR HGB CONC 32.2 g/dL (33.2-36.2); MEAN CORPUSCULAR VOLUME 95.9 fL (81-97); MEAN PLATELET VOLUME 10.2 fL (7.4-10.4); MONOCYTES # (AUTO) 0.48 x10^3/uL (0.2-0.8); MONOCYTES % (AUTO) 12 % (2-9); NEUTROPHILS # (AUTO) 2.26 x10^3/uL (1.8-6.8); NEUTROPHILS % (AUTO) 58 % (42-75); PLATELET COUNT 166 x10^3/uL (130-400); RED BLOOD COUNT 4.02 x10^6/uL (4.38-5.82); RED CELL DISTRIBUTION WIDTH 15.4 % (9.4-14.8)
[2019-11-12 07:45] VITALS: BP 166/95
[2019-11-12 07:47] VITALS: BP 166/95
[2019-11-12] MEDS ORDERED: LISINOPRIL 5 MG TABLET PO SCH (09:00)
[2019-11-12] MEDS ORDERED: CARVEDILOL 3.125 MG TABLET PO ONE (09:00)
[2019-11-12] MEDS ORDERED: FAMOTIDINE 20 MG/2 ML IVPush SCH (09:00)
[2019-11-12] MEDS: SODIUM CHLORIDE FLUSH 10ML SYR IVF SCH ×2 (10:30→21:35)
[2019-11-12] MEDS: AMPICILLIN/SULBACTAM 3 GM in SODIUM CHLORIDE 0.9% 100 ML IV SCH ×3 (10:30→23:27)
[2019-11-12] MEDS: FUROSEMIDE 20 MG TABLET PO SCH (10:30)
[2019-11-12] MEDS: SPIRONOLACTONE 25 MG TABLET PO SCH (10:30)
[2019-11-12 15:24] VITALS: BP 103/63
[2019-11-12] MEDS: CARVEDILOL 6.25 MG TABLET PO SCH (17:38)
[2019-11-12 19:56] VITALS: BP 125/76
[2019-11-13 02:21] VITALS: BP 127/82
[2019-11-13] MEDS: HEPARIN 5,000 UNITS/ML, 1ML SQ SCH ×2 (02:30→10:30)
[2019-11-13 05:32] VITALS: BP 158/97
[2019-11-13] MEDS: AMPICILLIN/SULBACTAM 3 GM in SODIUM CHLORIDE 0.9% 100 ML IV SCH ×2 (05:34→11:00)
[2019-11-13] MEDS: CARVEDILOL 6.25 MG TABLET PO SCH (05:35)
[2019-11-13] MEDS: OXYcodone IR 5MG TABLET PO PRN (06:12)
[2019-11-13 06:50] VITALS: BP 147/94
[2019-11-13] MEDS ORDERED: LISINOPRIL 5 MG TABLET PO SCH (09:00)
[2019-11-13] MEDS: SPIRONOLACTONE 25 MG TABLET PO SCH (09:20)
[2019-11-13] MEDS: FUROSEMIDE 20 MG TABLET PO SCH (09:20)
[2019-11-13] MEDS: SODIUM CHLORIDE FLUSH 10ML SYR IVF SCH (09:20)
[2019-11-13] MEDS ORDERED: SPIR25TA PO (10:41)
[2019-11-13] MEDS ORDERED: FURO20TA3 PO (10:41)
[2019-11-13] MEDS ORDERED: LISI5TAB7 PO (10:41)
[2019-11-13] MEDS ORDERED: CARV6.2512 PO (10:41)
[2019-11-13] MEDS ORDERED: AMOX1TAB61 PO (10:41)
== END 2019-11-13 13:30 | disposition home or self-care (01) | DRG 720 ==
LOC: ED 11-10 01:56 → EDSEX 11-10 03:00 → EDBD 11-10 03:00 → MERGE 11-10 03:00 → EDIP 11-10 03:00 → CCU 11-10 03:06 → 5SO 11-11 14:25 → DCLOUNGE 11-13 13:20
PROVIDERS: ADMIT Student in an Organized Health Care Education/Training Program; ATTEND Internal Medicine
PROC: 0BH17EZ Insertion of Endotracheal Airway into Trachea, Via Natural or Artificial Opening (ICD-10-PCS; principal; 2019-11-10)
PROC: 5A1935Z Respiratory Ventilation, Less than 24 Consecutive Hours (ICD-10-PCS; 2019-11-10)
PROC: 02HV33Z Insertion of Infusion Device into Superior Vena Cava, Percutaneous Approach (ICD-10-PCS; 2019-11-10)
PROC: B548ZZA Ultrasonography of Superior Vena Cava, Guidance (ICD-10-PCS; 2019-11-10)
PROC: 0T9B70Z Drainage of Bladder with Drainage Device, Via Natural or Artificial Opening (ICD-10-PCS; 2019-11-10)
DX: A41.9 Sepsis, unspecified organism (principal); J96.01 Acute respiratory failure with hypoxia; N17.0 Acute kidney failure with tubular necrosis; I21.A1 Myocardial infarction type 2; R65.21 Severe sepsis with septic shock; I50.43 Acute on chronic combined systolic (congestive) and diastolic (congestive) heart failure; J18.9 Pneumonia, unspecified organism; G93.41 Metabolic encephalopathy; I11.0 Hypertensive heart disease with heart failure; Z99.11 Dependence on respirator [ventilator] status; E87.2 Acidosis; B19.20 Unspecified viral hepatitis C without hepatic coma; D64.9 Anemia, unspecified; F12.10 Cannabis abuse, uncomplicated; F15.129 Other stimulant abuse with intoxication, unspecified; F41.9 Anxiety disorder, unspecified; I42.9 Cardiomyopathy, unspecified; Q21.1 Atrial septal defect; Z63.8 Other specified problems related to primary support group; Z86.73 Personal history of transient ischemic attack (TIA), and cerebral infarction without residual deficits; Z87.891 Personal history of nicotine dependence
CPT/HCPCS: 31500; 36415; 36556; 36600; 71045; 80048; 80053; 80061; 80074; 80202; 80307; 81001; 82533; 82803; 83036; 83605; 83735; 83880; 84145; 84439; 84443; 84478; 84484; 85025; 87040; 87070; 87081; 87205; 87400; 87521; 87806; 93005; 93306; 94002; 94003; 94150; 94640; 96374; 96375; G0378; J0295; J1644; J2250; J2543; J2704; J3010; J3370; J7620; G0475; J0330; J0360; J3490; J7030; J7050

== ENCOUNTER 2020-02-28 20:30 | Emergency (ER) | payer MEDICAID, OTHER ==
[~2020-02-28] VITALS: Ht 172.7 cm; Wt 72.0 kg
[~2020-02-28 20:30] MED LIST changes: +AMOX1TAB61 PO; +CARV6.2512 PO; +FURO20TA3 PO; +LISI5TAB7 PO; +SPIR25TA PO
[2020-02-28] MEDS ORDERED: LISINOPRIL 5 MG TABLET ONE (21:16)
[2020-02-28] MEDS ORDERED: CARVEDILOL 3.125 MG TABLET ONE (21:16)
[2020-02-28 21:20] LABS: ALANINE AMINOTRANSFERASE 24 U/L (12-78); ALBUMIN 3.4 g/dL (3.4-5.0); ANION GAP 5 mmol/L (5-15); CHLORIDE 113 mmol/L (98-107); CREATININE 1.29 mg/dL (0.7-1.3)
[2020-02-28] MEDS ORDERED: BACL-19 PO (21:24)
[2020-02-28] MEDS ORDERED: GABA-827 PO (21:24)
[2020-02-28] MEDS ORDERED: FOLI-17 PO (21:24)
[2020-02-28] MEDS ORDERED: MULT-658 PO (21:24)
[2020-02-28] MEDS ORDERED: HYDR-3342 PO (21:24)
[2020-02-28] MEDS ORDERED: THIA500T PO (21:24)
[2020-02-28 21:25] LABS: ALKALINE PHOSPHATASE 61 U/L (45-117); BILIRUBIN,TOTAL 0.4 mg/dL (0.2-1.0); TOTAL PROTEIN 7.1 g/dL (6.4-8.2); TROPONIN I 0.025 ng/mL (0.000-0.045)
[2020-02-28 21:30] LABS: BASOPHILS # (AUTO) 0.02 x10^3/uL (0-0.1); BASOPHILS % (AUTO) 0 % (0-1); EOSINOPHILS # (AUTO) 0.29 x10^3/uL (0-0.4); EOSINOPHILS % (AUTO) 6 % (1-7); LYMPHOCYTES # (AUTO) 1.69 x10^3/uL (1-3.4); LYMPHOCYTES % (AUTO) 32 % (22-44); MD NO; MEAN CORPUSCULAR HEMOGLOBIN 30.4 pg (27.5-34.5); MEAN CORPUSCULAR HGB CONC 31.2 g/dL (33.2-36.2); MEAN CORPUSCULAR VOLUME 97.1 fL (81-97); MEAN PLATELET VOLUME 10.7 fL (7.4-10.4); MONOCYTES # (AUTO) 0.54 x10^3/uL (0.2-0.8); MONOCYTES % (AUTO) 10 % (2-9); NEUTROPHILS # (AUTO) 2.71 x10^3/uL (1.8-6.8); NEUTROPHILS % (AUTO) 52 % (42-75); PLATELET COUNT 225 x10^3/uL (130-400); RED BLOOD COUNT 4.03 x10^6/uL (4.38-5.82); RED CELL DISTRIBUTION WIDTH 16.6 % (9.4-14.8)
[2020-02-28] MEDS ORDERED: CARVEDILOL 6.25 MG TABLET PO ONE (21:30)
[2020-02-28] MEDS ORDERED: LISINOPRIL 5 MG TABLET PO ONE (21:30)
--- NOTE | 2020-02-28 21:39 | NUR ---
BIB [facility] c/o slurred speech since this am. Patient has a hx of stroke last year. Witnessed increased speech by EMS but resolved with them. Patient also c/o SOB x3 days. Patient called the ambulance today due to HTN which he records at home q2 hrs. Denies blurry vision, dizziness, or LINK. Patient is in NAD. Respirations even and unlabored.
[2020-02-28 22:02] VITALS: BP 188/97
--- NOTE | 2020-02-28 22:26 | NUR ---
Spoke with Elina from [facility]. She is arranging transport to get patient back to [facility].
--- NOTE | 2020-02-28 22:49 | NUR ---
Discharge instructions given. All questions and concerns addressed. Patient ambulatory with a steady gait. Belongings with patient. Ride here from [facility] to hand picker patient.
== END 2020-02-28 22:51 ==
LOC: ED 22:45
DX: R06.00 Dyspnea, unspecified (principal); I10 Essential (primary) hypertension; M19.90 Unspecified osteoarthritis, unspecified site; M10.9 Gout, unspecified; Z90.89 Acquired absence of other organs
CPT/HCPCS: 36415; 71045; 80053; 83880; 84484; 85025; 93005; 99285

== ENCOUNTER 2020-06-04 04:17 | Emergency (ER) | payer MEDICAID ==
[~2020-06-04] VITALS: Ht 182.9 cm; Wt 79.0 kg
[~2020-06-04 04:17] MED LIST changes: +BACL-19 PO; +FOLI-17 PO; +GABA-827 PO; +HYDR-3342 PO; +MULT-658 PO; +THIA500T PO
--- NOTE | 2020-06-04 04:47 | NUR ---
Provider at bedside
[2020-06-04] MEDS ORDERED: SODIUM CHLORIDE FLUSH 10ML SYR IVF ONE (05:00)
[2020-06-04] MEDS ORDERED: ALBUTEROL/IPRATROPIUM 2.5MG/0.5MG, 3 ML NPPB ONE (05:00)
[2020-06-04] MEDS ORDERED: ALBUTEROL/IPRATROPIUM 2.5MG/0.5MG, 3 ML ONE (05:10)
[2020-06-04 05:33] LABS: ALBUMIN 3.4 g/dL (3.4-5.0); ANION GAP 6 mmol/L (5-15); CHLORIDE 110 mmol/L (98-107); CREATININE 1.36 mg/dL (0.7-1.3)
[2020-06-04 05:34] LABS: MEAN CORPUSCULAR HEMOGLOBIN 30.8 pg (27.5-34.5); MEAN CORPUSCULAR HGB CONC 32.2 g/dL (33.2-36.2); MEAN CORPUSCULAR VOLUME 95.8 fL (81-97); MEAN PLATELET VOLUME 10.4 fL (7.4-10.4); PLATELET COUNT 181 x10^3/uL (130-400); RED CELL DISTRIBUTION WIDTH 15.2 % (9.4-14.8)
[2020-06-04 05:37] LABS: TROPONIN I 0.034 ng/mL (0.000-0.045)
--- NOTE | 2020-06-04 05:45 | NUR ---
Reports good effect from neb. O2 in mid 90s RA. Speaking in clear, full sentences. No use of accessory muscles noted. No s/sx acute respiratory distress
[2020-06-04 05:59] LABS: MD YES
[2020-06-04 06:02] LABS: <PLATELET ESTIMATE> ADEQUATE; <PLT MORPHOLOGY> NORMAL PLT MORPH; ANISOCYTOSIS 1+; EOS#(MANUAL) 0.17 x10^3/uL (0.0-0.4); EOS% (MANUAL) 3 % (1-7); LYMPH#(MANUAL) 2.09 x10^3/uL (1-3.4); LYMPHS% (MANUAL) 38 % (22-44); MONOS#(MANUAL) 0.17 x10^3/uL (0.3-2.7); MONOS% (MANUAL) 3 % (2-9); SEG#(MANUAL) 3.08 x10^3/uL (1.8-6.8); SEGS% (MANUAL) 56 % (42-75)
[2020-06-04 06:30] VITALS: BP 151/97
== END 2020-06-04 07:05 | disposition home or self-care (01) ==
LOC: ED 06:18
DX: J44.1 Chronic obstructive pulmonary disease with (acute) exacerbation (principal); R10.84 Generalized abdominal pain; I11.9 Hypertensive heart disease without heart failure; I21.9 Acute myocardial infarction, unspecified; R07.9 Chest pain, unspecified
CPT/HCPCS: 36415; 71045; 80048; 82040; 83880; 84484; 85025; 93005; 94640; 99285

== ENCOUNTER 2021-04-21 06:32 | Emergency (ER) | payer MEDICAID ==
[~2021-04-21] VITALS: Ht 172.7 cm; Wt 64.0 kg
[~2021-04-21 06:32] MED LIST changes: -ENAL20TA PO; +ENAL20TA9 PO; -ESCI20TA PO; +ESCI20TA8 PO; -FOLI-17 PO; +FOLI1TAB32 PO; +MIRT-37 PO; -MIRT15TA PO; +OLAN15TA14 PO; -OLAN15TA9 PO
--- NOTE | 2021-04-21 07:01 | NUR ---
RADHA RN BROUGHT PT TO ROOM, DID CLINICAL SCREEN AND HAD PT DRESS IN HOSPITAL GOWN. ASSUMED CARE OF PT. HE IS HERE W/ C/O OF LEFT WRIST PAIN, "I CAN'T BEND IT", AND SAME WITH HIS RIGHT FOOT. PT DENIES TRAUMA, DENIES NUMBNESS AND TINGLING. CMS INTACT. PT PLACED ON BP MONITOR AND SPO2. NADN, CALL LIGHT W/IN REACH.
--- NOTE | 2021-04-21 07:23 | NUR ---
PROVIDED PT WITH SMALL BAG OF ICE FOR WRIST/HAND AND LARGER BAG FOR ANKLE. XRAY CURRENTLY BEDSIDE.
[2021-04-21] MEDS ORDERED: KETOROLAC 30 MG/1 ML IM ONE (07:30)
[2021-04-21] MEDS ORDERED: KETOROLAC 30 MG/1 ML ONE (07:38)
--- NOTE | 2021-04-21 07:45 | NUR ---
PT MEDICATED PER VENU FAJARDO. CALL LIGHT W/IN REACH.
[2021-04-21 08:18] VITALS: BP 140/83
--- NOTE | 2021-04-21 08:19 | NUR ---
Currently waiting for splint to be performed by returned case inspector. In mean time reviewed dc paperwork w/ patient. Patient given discharge instructions and they have confirmed that they understand the instructions. Patient ambulatory with steady gait.
--- NOTE | 2021-04-21 08:38 | NUR ---
HEEL VARNISHER BEDSIDE FOR SPLINT.
--- NOTE | 2021-04-21 08:56 | NUR ---
PT HAS SPLINT IN PLACE, REVIEWED CARE. CMS INTACT. WALKED TO REGISTRATION TO COMPLETE DC PROCESS.
== END 2021-04-21 08:57 | disposition home or self-care (01) ==
LOC: ED 08:25
DX: S63.522A Sprain of radiocarpal joint of left wrist, initial encounter (principal); M25.571 Pain in right ankle and joints of right foot; F15.20 Other stimulant dependence, uncomplicated; F10.20 Alcohol dependence, uncomplicated; Y90.0 Blood alcohol level of less than 20 mg/100 ml; I10 Essential (primary) hypertension; J44.9 Chronic obstructive pulmonary disease, unspecified; M19.90 Unspecified osteoarthritis, unspecified site; Z86.73 Personal history of transient ischemic attack (TIA), and cerebral infarction without residual deficits; X58.XXXA Exposure to other specified factors, initial encounter; Y93.89 Activity, other specified; Y92.009 Unspecified place in unspecified non-institutional (private) residence as the place of occurrence of the external cause; Y99.8 Other external cause status
CPT/HCPCS: 29125; 29515; 73110; 73130; 73610; 99284; J1885; 29105